=== PATIENT | female | born 1995 | race African-American/Black ===

== ENCOUNTER 2024-08-22 05:50 | Emergency (ER) | payer OTHER ==
[~2024-08-22] VITALS: Ht 165.1 cm; Wt 66.0 kg
[2024-08-22 06:05] VITALS: O2SAT 100
[2024-08-22 06:51] LABS: BASOPHILS % 0.6 % (0.0-2.0); EOSINOPHILS % 3.9 % (0.0-5.0); HEMATOCRIT. 35.5 % (36.0-48.0); HEMOGLOBIN. 11.5 g/dL (12.0-16.0); LYMPHOCYTES % 27.4 % (20.0-50.0); MEAN CORPUSCULAR HGB CONC 32.5 g/dL (31.0-37.0); MEAN CORPUSCULAR VOLUME 83.1 fL (81.0-99.0); MEAN PLATELET VOLUME 8.8 fl (7.4-10.4); NEUTROPHILS % 59.1 % (40.0-76.0); PLATELET 378 x1000/uL (130-400); RED BLOOD CELL COUNT 4.28 mill/uL (4.2-5.4); RED CELL DISTRIBUTION WIDTH 14.6 % (11.6-14.6)
[2024-08-22 07:56] LABS: CHLORIDE 106 mEq/L (98-107); POTASSIUM 3.2 mEq/L (3.5-5.1); SODIUM 141 mEq/L (136-145)
[2024-08-22 07:57] LABS: CALCIUM 9.4 mg/dL (8.7-10.4); CARBON DIOXIDE 25 mEq/L (21-32)
[2024-08-22 08:02] LABS: B-HCG QUANTITATIVE 68 mIU/mL (<6); CREATININE 0.8 mg/dL (0.6-1.0); GLUCOSE 89 mg/dL (70-105); UREA NITROGEN BLOOD 11 mg/dL (9-23)
[2024-08-22 08:44] LABS: CLARITY URINE CLEAR (CLEAR); COLOR URINE YELLOW (YELLOW); GLUCOSE URINE NEGATIVE (NEGATIVE); KETONES URINE NEGATIVE (NEGATIVE); LEUKOCYTE ESTERASE URINE NEGATIVE (NEGATIVE); NITRITE URINE NEGATIVE (NEGATIVE); OCCULT BLOOD URINE 3+ (NEGATIVE); PH URINE 5.5 (4.5-8.0); PROTEIN URINE NEGATIVE (NEGATIVE); SPECIFIC GRAVITY URINE 1.021 (1.005-1.030); UROBILINOGEN URINE 0.2 E.U./dL (0.2-1.0)
[2024-08-22 09:10] VITALS: BP 129/84; PULSE 76; RESP 18; TEMP 37.1; O2SAT 100
[2024-08-22 09:29] LABS: MUCUS URINE TRACE /lpf (< = 2+); RBC URINE 50-100 /hpf (0-2); SQUAMOUS EPITHELIAL CELL URINE 1+ /lpf (RARE/1+)
[2024-08-22 09:30] LABS: BACTERIA URINE TRACE; CALCIUM OXALATE CRYSTALS URINE 1+ /lpf; WBC URINE 0-2 /hpf (0-2)
[2024-08-23 15:54] LABS: UCG SCREEN POSITIVE
== END 2024-08-22 09:11 | disposition home or self-care (01) ==
LOC: ER 05:50
DX: O34.11 Maternal care for benign tumor of corpus uteri, first trimester (principal); Z3A.01 Less than 8 weeks gestation of pregnancy; O26.891 Other specified pregnancy related conditions, first trimester; D25.0 Submucous leiomyoma of uterus
CPT/HCPCS: 36415; 76830; 76856; 80048; 81003; 81025; 84702; 85025; 86850; 86900; 99284